=== PATIENT | female | born 1980 | race Caucasian/White ===

== ENCOUNTER 2018-02-23 19:33 | Emergency (ER) | payer OTHER ==
[~2018-02-23] VITALS: Ht 160 cm; Wt 81.7 kg
[~2018-02-23 19:33] MED LIST: CEPH500 PO; CLIN300 PO; HYDACE5 PO; NITR100CA PO; OXYACE5T; PHENA100 PO; Percocet 5-3251 EACH PO; Protonix40 MG PO; Zofran Odt8 MG SL
[2018-02-23 20:34] LABS: Source, Urine Clean Catch
[2018-02-23 20:41] LABS: Bilirubin, Urine Neg (Neg); Blood, Urine 1+ (Neg); Glucose Qualitative, Urine Neg (Neg); Ketones, Urine Neg (Neg); Leukocyte Esterase, Urine 2+ (Neg); Nitrite, Urine Pos (Neg); Protein, Urine Neg (Neg); Specific Gravity, Urine 1.015 (1.003-1.022); Urobilinogen, Urine NORM (Normal); pH, Urine 6.5 (5.0-8.0)
[2018-02-23 20:44] LABS: Appearance, Urine Hazy (Clear); Color, Urine Yellow (P-Yellow)
[2018-02-23 20:46] LABS: Bacteria Many /hpf; Red Blood Cells, Urine Rare /hpf (0-2); Squamous Epithelial Cells Few /hpf (Few); White Blood Cells, Urine 25-50 /hpf (0-5)
== END 2018-02-23 21:01 | disposition home or self-care (01) ==
LOC: ER 19:33
PROVIDERS: Physician Assistant
DX: N34.2 Other urethritis (principal); F17.210 Nicotine dependence, cigarettes, uncomplicated
CPT/HCPCS: 81001; 87077; 87086; 87186; 96372; 99283-25; J0696